=== PATIENT | male | born 1945 | race Caucasian/White ===

== ENCOUNTER 2018-10-07 07:40 | Day surgery (SDC) | payer MEDICARE ==
[~2018-10-07] VITALS: Ht 175.3 cm; Wt 86.3 kg
[2018-10-07] MEDS ORDERED: SODIUM CHLORIDE 0.9% 1,000 ML IV SCH (08:13)
[2018-10-07 08:42] VITALS: BP 127/69
[2018-10-07] MEDS ORDERED: HYDR500C PO (08:51)
[2018-10-07] MEDS ORDERED: OMEG1CAP23 PO (08:51)
[2018-10-07] MEDS ORDERED: MULT-658 PO (08:51)
[2018-10-07] MEDS ORDERED: ASCO10004 PO (08:51)
[2018-10-07] MEDS ORDERED: LIDOCAINE-MPF 1%, 5ML ONE (09:01)
[2018-10-07] MEDS ORDERED: FENTANYL PF 100 MCG/2ML ONE (09:08)
[2018-10-07] MEDS ORDERED: NALOXONE 1 MG/ML, 2ML ONE (09:08)
[2018-10-07] MEDS ORDERED: FLUMAZENIL 0.1 MG/1 ML, 5ML ONE (09:08)
[2018-10-07] MEDS ORDERED: MIDAZOLAM 1 MG/ML, 5ML ONE (09:08)
[2018-10-07 09:50] LABS: MEAN CORPUSCULAR HEMOGLOBIN 33.2 pg (27.5-34.5); MEAN CORPUSCULAR HGB CONC 33.3 g/dL (33.2-36.2); MEAN CORPUSCULAR VOLUME 99.8 fL (81-97); MEAN PLATELET VOLUME 8.2 fL (7.4-10.4); PLATELET COUNT 338 x10^3/uL (130-400); RED BLOOD COUNT 2.62 x10^6/uL (4.38-5.82); RED CELL DISTRIBUTION WIDTH 24.7 % (9.4-14.8)
[2018-10-07 09:51] LABS: MD YES
[2018-10-07 09:52] LABS: BAND#(MANUAL) 0.08 x10^3/uL; BANDS%(MANUAL) 1 % (0-7); BASOS#(MANUAL) 0.16 x10^3/uL (0-0.1); BASOS% (MANUAL) 2 % (0-1); EOS#(MANUAL) 0.08 x10^3/uL (0.0-0.4); EOS% (MANUAL) 1 % (1-7); LYMPH#(MANUAL) 1.33 x10^3/uL (1-3.4); LYMPHS% (MANUAL) 17 % (22-44); MONOS#(MANUAL) 0.16 x10^3/uL (0.3-2.7); MONOS% (MANUAL) 2 % (2-9); SEG#(MANUAL) 6.01 x10^3/uL (1.8-6.8); SEGS% (MANUAL) 77 % (42-75)
[2018-10-07 09:53] LABS: ANISOCYTOSIS 2+; MICROCYTOSIS 1+; OVALOCYTES 2+
[2018-10-07 09:54] LABS: TEAR DROPS 1+
[2018-10-07 09:55] LABS: SCHISTOCYTES 1+
[2018-10-07 09:56] LABS: <PLATELET ESTIMATE> ADEQUATE; POLYCHROMASIA 1+
[2018-10-07 09:57] LABS: LARGE PLATELETS 2+; SMALL PLATELETS 1+
[2018-10-07 09:58] LABS: BIZARRE PLATELETS 1+
== END 2018-10-07 11:15 | disposition home or self-care (01) ==
LOC: OUT 07:40
PROVIDERS: ATTEND Internal Medicine Hematology & Oncology
DX: D47.3 Essential (hemorrhagic) thrombocythemia (principal); N18.3 Chronic kidney disease, stage 3 (moderate); Z98.890 Other specified postprocedural states
CPT/HCPCS: 36415; 38222; 77012; 85025; 85060; 85097; 88237; 88264; 88280; 88305; 88311; 88313; 99156; J2250; J3010; J7030; 88360; 99157; J2310